=== PATIENT | male | born 1970 | race Caucasian/White ===

== ENCOUNTER 2018-10-03 15:02 | Emergency (ER) | payer OTHER ==
[~2018-10-03] VITALS: Ht 170.2 cm; Wt 104.3 kg
[2018-10-03 15:09] VITALS: Ht 170.2 cm; Wt 104.3 kg
[2018-10-03 15:43] LABS: BASOPHIL % 0.8 % (0-2); RED CELL DISTRIBUTION WIDTH 13.1 % (11.5-14.5)
[2018-10-03 15:49] LABS: CALCIUM 8.6 mg/dL (8.5-10.1); CARBON DIOXIDE 29.6 mmol/L (21-32); CHLORIDE SERUM 104 mmol/L (98-107); GFR1 > 60 mL/min; GLUCOSE SERUM 110 mg/dL (74-106); POTASSIUM SERUM 4.3 mmol/L (3.5-5.1); SODIUM SERUM 139 mmol/L (136-145)
[2018-10-03 15:54] LABS: ALBUMIN 3.6 g/dL (3.4-5.0); ALKALINE PHOSPHATASE 89 U/L (46-116); ALT/SGPT 78 U/L (16-63); AST/SGOT 39 U/L (15-37); BILIRUBIN TOTAL 0.2 mg/dL (0.20-1.00); TOTAL PROTEIN, SERUM 7.9 g/dL (6.4-8.2)
[2018-10-03 15:54] LABS: AMPHETAMINE QUAL UR NONE DETECTED (See below)
[2018-10-03 15:58] LABS: PLATELET COUNT 105 x10^3mcL (130-400)
[2018-10-03 17:57] VITALS: BP 128/88
== END 2018-10-03 17:57 | disposition home or self-care (01) ==
LOC: ED 15:02
PROVIDERS: Emergency Medicine
DX: G40.89 Other seizures (principal); J45.909 Unspecified asthma, uncomplicated; Z86.19 Personal history of other infectious and parasitic diseases; Z88.5 Allergy status to narcotic agent
CPT/HCPCS: 36415

== ENCOUNTER 2018-10-04 14:24 | Emergency (ER) | payer OTHER ==
[~2018-10-04] VITALS: Ht 177.8 cm; Wt 90.7 kg
[2018-10-04 14:29] VITALS: Ht 177.8 cm; Wt 90.7 kg
[2018-10-04 14:58] LABS: BASOPHIL % 0.5 % (0-2); RED CELL DISTRIBUTION WIDTH 12.4 % (11.5-14.5)
[2018-10-04 15:02] LABS: PLATELET COUNT 106 x10^3mcL (130-400)
[2018-10-04 15:05] LABS: CALCIUM 8.4 mg/dL (8.5-10.1); CARBON DIOXIDE 29.1 mmol/L (21-32); CHLORIDE SERUM 105 mmol/L (98-107); GFR1 > 60 mL/min; GLUCOSE SERUM 112 mg/dL (74-106); POTASSIUM SERUM 4.1 mmol/L (3.5-5.1); SODIUM SERUM 138 mmol/L (136-145)
[2018-10-04 15:09] LABS: ALBUMIN 3.6 g/dL (3.4-5.0); ALKALINE PHOSPHATASE 91 U/L (46-116); ALT/SGPT 79 U/L (16-63); AST/SGOT 39 U/L (15-37); BILIRUBIN TOTAL 0.2 mg/dL (0.20-1.00); TOTAL PROTEIN, SERUM 7.6 g/dL (6.4-8.2)
[2018-10-04 15:24] LABS: AMPHETAMINE QUAL UR NONE DETECTED (See below)
[2018-10-04 17:28] VITALS: BP 111/68
== END 2018-10-04 17:28 | disposition home or self-care (01) ==
LOC: ED 14:24
PROVIDERS: Emergency Medicine
DX: G40.909 Epilepsy, unspecified, not intractable, without status epilepticus (principal); F31.9 Bipolar disorder, unspecified; Z98.890 Other specified postprocedural states; J45.909 Unspecified asthma, uncomplicated; Z88.5 Allergy status to narcotic agent
CPT/HCPCS: 36415

== ENCOUNTER 2018-11-05 15:33 | Emergency (ER) | payer OTHER ==
[~2018-11-05] VITALS: Ht 167.6 cm; Wt 99.8 kg
[2018-11-05 16:20] VITALS: Ht 167.6 cm; Wt 99.8 kg
[2018-11-05 16:53] LABS: BASOPHIL % 0.4 % (0-2); RED CELL DISTRIBUTION WIDTH 12.8 % (11.5-14.5)
[2018-11-05 16:54] LABS: PLATELET COUNT 121 x10^3mcL (130-400)
[2018-11-05 17:15] LABS: ALKALINE PHOSPHATASE 105 U/L (46-116); ALT/SGPT 79 U/L (16-63); AST/SGOT 49 U/L (15-37); BILIRUBIN TOTAL 0.3 mg/dL (0.20-1.00); CALCIUM 9.1 mg/dL (8.5-10.1); CARBON DIOXIDE 25.1 mmol/L (21-32); CHLORIDE SERUM 103 mmol/L (98-107); CREATININE SERUM 0.9 mg/dL (0.7-1.3); GFR1 > 60 mL/min; GLUCOSE SERUM 77 mg/dL (74-106); POTASSIUM SERUM 4.1 mmol/L (3.5-5.1); SODIUM SERUM 140 mmol/L (136-145); TOTAL PROTEIN, SERUM 8.9 g/dL (6.4-8.2)
[2018-11-05 17:30] LABS: microscopic required? YES; urine erythrocyte NEGATIVE (NEGATIVE)
[2018-11-05 17:39] LABS: AMPHETAMINE QUAL UR NONE DETECTED (See below)
[2018-11-05 19:47] VITALS: BP 125/76
== END 2018-11-06 01:36 | disposition home or self-care (01) ==
LOC: ED 15:33
PROVIDERS: Emergency Medicine
DX: G40.409 Other generalized epilepsy and epileptic syndromes, not intractable, without status epilepticus (principal); F31.9 Bipolar disorder, unspecified; K74.60 Unspecified cirrhosis of liver; Z88.5 Allergy status to narcotic agent; Z86.19 Personal history of other infectious and parasitic diseases
CPT/HCPCS: 36415